=== PATIENT | male | born 1940 | race Caucasian/White ===

== ENCOUNTER → 2018-11-17 | Outpatient (CLI) | payer MEDICARE ==
[2018-11-17 11:17] LABS: African American GFR (CKD) >90 (>60 ml/min/1.73 sqM); Blood Urea Nitrogen 13 mg/dL (9-20)
--- NOTE | 2018-11-17 17:10 | CT ---
EXAMINATION TYPE: CT ChestAbdPelvis w con DATE OF EXAM: 11/17/2018 INDICATION: Lung CA COMPARISON: Written report from [facility] CT DLP: 1885 mGycm CONTRAST: Performed with Oral Contrast and with IV Contrast, patient injected with 100 mL of Isovue 300. TECHNIQUE: Axial images at 5 mm thick sections. Reconstructed images in the coronal plane. Delayed images through the kidneys. FINDINGS: CT CHEST: Portion of the thyroid visualized is normal. There is consolidation in the left infrahilar region. Correlate for pneumonia. Underlying mass is not excluded. There may be some dense calcification present. A Small left pleural effusion may be presen t. There is a 0.4 cm nodule superior segment right lower lobe adjacent to the major fissure. Series 4 im age 39. No enlarged mediastinal or hilar adenopathy is evident. The ascending aorta diameter at the level of the main pulmonary artery is 4.1 cm. The main pulmonary artery diameter at the bifurcation is 4.1 cm. Note is made of coronary artery calcification. CT ABDOMEN: Liver: Normal Spleen: Normal Pancreas: Normal Adrenal glands: The adrenal glands are normal. Gallbladder: Normal Kidneys: No masses are evident. No hydronephrosis is present. No cysts are present. Delayed images were obtained through the kidneys which remain unremarkable. Aorta: Vascular calcification is within the aorta. Inferior vena cava: Normal. CT PELVIS: Loops of bowel within the abdomen and pelvis are normal. There are loops of bowel which are incom pletely distended or lack oral contrast limiting their evaluation. Appendix: Normal as visualized. Urinary bladder: Normal. Genitourinary structures: Prostate is prominent. Osseous structures: No suspicious lytic or sclerotic lesions. IMPRESSIONS: 1. Left infrahilar consolidation with air bronchograms. Correlate for pneumonia. Underlying mass shou ld be considered which would correlate with the patient's reported lung cancer. There may be some alfredo cification in this structure. Consider PET CT for additional evaluation bilateral prior PET/CT scans at this location.
== END | disposition home or self-care (01) ==
LOC: RADPROMAIN 10:08
PROVIDERS: ATTEND Internal Medicine Hematology & Oncology
DX: C34.32 Malignant neoplasm of lower lobe, left bronchus or lung (principal)
CPT/HCPCS: 82565; 84520; 71260; 74177; J1642; Q9967

== ENCOUNTER → 2019-04-23 | Outpatient (CLI) | payer MEDICARE ==
--- NOTE | 2019-04-23 12:44 | CT ---
EXAMINATION TYPE: CT chest w con DATE OF EXAM: 04/23/2019 COMPARISON: CT November 17, 2018 HISTORY: Lung cancer CT DLP: 809 mGycm. Automated Exposure Control for Dose Reduction was Utilized. TECHNIQUE: CT scan of the thorax is performed following with IV Contrast, patient injected with 100 ml mL of Isovue 300. FINDINGS: LUNGS: There is persistent dense masslike consolidation left hilar region extending inferiorly to inv olve the posterior aspect of the left lower lobe with areas of hyperdensity near calcific density tow ards the diaphragm redemonstrated. Adjacent small to tiny left pleural fluid collection noted along t heir axial image 35 remains present. There is persistent left-sided volume loss. Stable 4 mm right anterior lower lobe nodule axial image 33. Some atelectatic change in the right gabby g base posteriorly. No new nodules or masses. No pneumothorax bilaterally. MEDIASTINUM: There are no new greater than 1 cm hilar or mediastinal lymph nodes. No cardiomegaly or pericardial effusion is seen. Moderate to severe three-vessel coronary artery calcification redem onstrated which is noted marked of underlying coronary artery disease. OTHER: Subtle subcentimeter nodule centrally left adrenal gland image 62 is stable favored benign. So me cortical thinning and visualized portion of both kidneys. Multilevel bridging anterior and lateral osteophytes in the thoracic spine redemonstrated probable DISH. Stable nonspecific sclerotic focus p osterior T8 vertebral body level on coronal image 96. Stable right internal jugular Mediport catheter terminating in SVC. 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 No new suspicio us mass or adenopathy identified.
== END | disposition home or self-care (01) ==
LOC: RADPROMAIN 09:37
PROVIDERS: ATTEND Internal Medicine Hematology & Oncology
DX: Z03.89 Encounter for observation for other suspected diseases and conditions ruled out (principal); C34.32 Malignant neoplasm of lower lobe, left bronchus or lung
CPT/HCPCS: 82565; 84520; 71260; Q9967

== ENCOUNTER → 2019-07-20 | Outpatient (CLI) | payer MEDICARE ==
--- NOTE | 2019-07-20 14:09 | CT ---
EXAMINATION TYPE: CT chest w con DATE OF EXAM: 07/20/2019 COMPARISON: 04/23/2019 and 11/17/2018 HISTORY: 78-year-old male Follow up to lung CA TECHNIQUE: Contiguous axial scanning of the chest after the administration of 100 mL of Isovue 300. Coronal/sagittal reconstructions performed. CT DLP: 579.2mGycm. Automatic exposure control utilized for a dose reduction. FINDINGS: Right anterior chest wall injection port with catheter tip at the cavoatrial junction. Heart normal size without pericardial effusion. Three-vessel coronary artery calcifications are prese nt Ectatic ascending aorta 3.8 cm and upper descending thoracic aorta at 3.1 cm. Mild atherosclerotic ar ch calcifications and conventional arch vessel branching anatomy. Redemonstrated is volume loss in the left hemithorax when shift of the heart towards the left. Left infrahilar volume loss and consolidation extending throughout the left lower lobe is unchanged. Associated small left pleural effusion is unchanged as is the subpleural lobulated density with inter nal calcifications along the posteromedial left base measuring 5.0 x 1.9 cm. 4 mm right mid lung pulmonary nodule, unchanged from 11/17/2018. Tiny hiatal hernia. Visualized upper abdomen show some scattered subcentimeter hypodensities within t he left renal cortex suggesting cysts and moderate stool burden. BONES: Bridging endplate spondylosis and some ossification along the supraspinous ligament. IMPRESSION: 1. Redemonstrated consolidation and volume loss along the left infrahilar region and left lower lobe with associated small effusion and some calcifications along a more lobulated subpleural opacity in t he lower lobe measuring 5.0 x 1.9 cm. Findings unchanged from 11/17/2018, likely combination of treate d disease and posttreatment change. 2. A 4 mm right mid lung pulmonary nodule also stable from that time. Additional follow-up as clinica lly indicated. 3. CAD and tiny hiatal hernia.
== END | disposition home or self-care (01) ==
LOC: RADPROMAIN 10:21
PROVIDERS: ATTEND Internal Medicine Hematology & Oncology
DX: R91.1 Solitary pulmonary nodule (principal); I25.10 Atherosclerotic heart disease of native coronary artery without angina pectoris; R91.8 Other nonspecific abnormal finding of lung field; C34.32 Malignant neoplasm of lower lobe, left bronchus or lung; Z98.890 Other specified postprocedural states
CPT/HCPCS: 82565; 84520; 71260; J1642; Q9967

== ENCOUNTER → 2019-12-07 | Outpatient (CLI) | payer MEDICARE ==
--- NOTE | 2019-12-07 12:38 | CT ---
EXAMINATION TYPE: CT ChestAbdPelvis w con DATE OF EXAM: 12/07/2019 COMPARISON: 07/20/2019 HISTORY: Lung CA CT DLP: 2311 mGycm CONTRAST: CT scan of the chest, abdomen and pelvis is performed with Oral Contrast and with IV Contrast, patien t injected with 100 mL of Isovue 300. CT Chest: LUNGS: There is stable left lower lobe consolidation with areas of internal calcification and pleural thickening. No evidence for sizable effusion. Overall appearance is unchanged. The remaining lungs a re clear. Left-sided volume loss seen. Stable 4 mm right mid lung zone pulmonary nodule image 38 is u nchanged. MEDIASTINUM: Thoracic aorta is of normal caliber. The heart is mildly enlarged. No evidence for me diastinal mass or adenopathy. HILAR STRUCTURES: No evidence for mass. No hilar adenopathy is appreciated. OTHER: No significant abnormality. CONTRAST CT ABDOMEN AND PELVIS FINDINGS: LIVER/GB: No calcified gallstones. No space occupying hepatic lesion. Biliary tree is of normal ca liber. PANCREAS: No inflammation. No distinct mass. SPLEEN: No splenic enlargement. No lesion seen. ADRENALS: No nodule. No thickening. KIDNEYS/BLADDER: No hydronephrosis. No nephrolithiasis. No disctinct renal mass. BOWEL: Normal appendix. Normal bowel caliber. No inflammation. GENITAL ORGANS: No gross abnormality. LYMPH NODES: No greater than 1cm abdominal or pelvic lymph nodes are appreciated. AORTA: No significant abnormality. OSSEOUS STRUCTURES: No significant abnormality is seen. OTHER: No significant additional abnormality is seen. IMPRESSION: 1. Stable consolidation and volume loss left lower lobe felt to reflect posttreatment change. 2. Stable right midlung zone pulmonary nodule. No new nodules or masses identified.
== END | disposition home or self-care (01) ==
LOC: RADCTMAIN 09:53
PROVIDERS: ATTEND Internal Medicine Hematology & Oncology
DX: R91.1 Solitary pulmonary nodule (principal); C34.32 Malignant neoplasm of lower lobe, left bronchus or lung; E11.9 Type 2 diabetes mellitus without complications; Z79.84 Long term (current) use of oral hypoglycemic drugs
CPT/HCPCS: 82565; 84520; 71260; 74177; J1642; Q9967

== ENCOUNTER → 2020-09-27 | Outpatient (CLI) | payer MEDICARE ==
--- NOTE | 2020-09-28 07:17 | CT ---
EXAMINATION TYPE: CT ChestAbdPelvis w con DATE OF EXAM: 09/27/2020 COMPARISON: Prior CT December 07, 2019 and older CTs HISTORY: Follow up on lung cancer CT DLP: 2068.8 mGycm. Automated Exposure Control for Dose Reduction was Utilized. CONTRAST: CT scan of the thorax, abdomen and pelvis is performed with oral and with IV Contrast, patient inject ed with 100 mL of Isovue 300. FINDINGS: LUNGS: There is persistent dense masslike consolidation left hilar region extending inferiorly to inv olve the posterior aspect of the left lower lobe with areas of hyperdensity near calcific density tow ards the diaphragm redemonstrated. Adjacent small to tiny left pleural fluid collection redemonstrate d for reference axial image 42 remains present. There is persistent left-sided volume loss. Stable 4 mm right anterior lower lobe nodule axial image 36. Some atelectatic change in the right gabby g base posteriorly is redemonstrated. No new or enlarging nodules or masses. No pneumothorax bilatera lly. MEDIASTINUM: There are no new greater than 1 cm hilar or mediastinal lymph nodes. No cardiomegaly is seen. Small to tiny pericardial effusion is redemonstrated. Moderate to severe three-vessel ng ry artery calcification redemonstrated. OTHER: Stable right internal jugular Mediport catheter. LIVER/GB: No significant abnormality is appreciated. PANCREAS: No significant abnormality is seen. SPLEEN: No significant abnormality is seen. ADRENALS: No significant abnormality is seen. KIDNEYS: No significant abnormality is seen. BOWEL: Oral contrast does not reach the level of the terminal ileum. No suspicious small or large bow el dilatation. GENITAL ORGANS: Enlarged prostate consistent with BPH redemonstrated. LYMPH NODES: No greater than 1cm abdominal or pelvic lymph nodes are appreciated. OSSEOUS STRUCTURES: Multilevel spurring in the spine. Multilevel facet arthropathy in the mid to lowe r lumbar spine. Moderate to severe narrowing with moderate spurring of both hip joints. OTHER: [id number] calcified plaque of the aorta extends into branch vessels. IMPRESSION: Stable masslike consolidation volume loss left lung. No new or enlarging masses or adenop athy. No significant change from most recent CT.
== END | disposition home or self-care (01) ==
LOC: RADPROMAIN 10:05
PROVIDERS: ATTEND Internal Medicine Hematology & Oncology
DX: C34.92 Malignant neoplasm of unspecified part of left bronchus or lung (principal)
CPT/HCPCS: 82565; 84520; 71260; 74177; J1642; Q9967

== ENCOUNTER → 2021-04-05 | Outpatient (CLI) | payer MEDICARE ==
--- NOTE | 2021-04-05 11:54 | CT ---
EXAMINATION TYPE: CT ChestAbdPelvis w con DATE OF EXAM: 04/05/2021 COMPARISON: 09/27/2020 HISTORY: Lung Cancer CT DLP: 2103.90 mGycm Automated exposure control for dose reduction was used. CONTRAST: CT scan of the chest, abdomen and pelvis is performed with Oral Contrast and with IV Contrast, patien t injected with 100 ml mL of Isovue 300. FINDINGS: LUNGS: There is persistent dense masslike consolidation left hilar region extending inferiorly to inv olve the posterior aspect of the left lower lobe with areas of hyperdensity near calcific density tow ards the diaphragm redemonstrated. Adjacent small to tiny left pleural fluid collection redemonstrate d remains present. There is persistent left-sided volume loss. Area of consolidation measures 6.2 x 7 .2 x 8.6 cm and is stable from prior exam. Extends to the left hilum. No pneumothorax. Mediport catheter incidentally noted. Interstitial thickening involving the lateral margin right lung bases most typical for chronic interstitial lung disease. 2 mm nodule lateral segme nt right lower lobe stable prior exam. Additional 3 mm nodule axial image 37 also stable. Nodules are likely benign. MEDIASTINUM: There are no greater than 1 cm hilar or mediastinal lymph nodes. No pericardial effusi on is seen. Coronary artery calcification noted. Heart size stable and there is a tiny pericardial e ffusion. Atherosclerotic change aorta which is of normal caliber. LIVER/GB: No significant abnormality is appreciated. PANCREAS: No significant abnormality is seen. SPLEEN: No significant abnormality is seen. ADRENALS: No significant abnormality is seen. KIDNEYS: 5 mm hypodensity involving the posterior margin of the left kidney most typical of a simple cyst.. BOWEL: No significant abnormality is seen. LYMPH NODES: No greater than 1 cm abdominal or pelvic lymph nodes are appreciated. OSSEOUS STRUCTURES: Multilevel hypertrophic and degenerative changes spine. Arthropathy of the hips. OTHER: Prostate gland is enlarged.. Aorta of normal caliber. There is atherosclerotic change of the a adonis and its branch vessels. IMPRESSION: 1. Large area of consolidation with internal calcification left lower lobe is stable from prior exam and again measures approximately 6.2 x 7.2 x 8.6 cm. There are no prior PET scans available to determ ine the activity of the area to determine if this represents mass or chronic atelectasis or a combina tion of both. 2. No new areas of adenopathy, pulmonary nodule or suspicious mass. Stable appearing right sided sub 5 mm pulmonary nodules are likely benign. 3. Interlobular septal thickening right lower lobe stable most compatible with chronic pulmonary fibr osis.
== END | disposition home or self-care (01) ==
LOC: RADPROMAIN 09:20
PROVIDERS: ATTEND Internal Medicine Hematology & Oncology
DX: C34.32 Malignant neoplasm of lower lobe, left bronchus or lung (principal); R91.8 Other nonspecific abnormal finding of lung field
CPT/HCPCS: 82565; 84520; 71260; 74177; J1642; Q9967

== ENCOUNTER → 2021-11-22 | Outpatient (CLI) | payer MEDICARE ==
--- NOTE | 2021-11-22 15:18 | CT ---
EXAMINATION TYPE: CT ChestAbdPelvis w con DATE OF EXAM: 11/22/2021 INDICATION: f/u lung ca COMPARISON: 04/05/2021 CT DLP: 1646 mGycm CONTRAST: Performed with Oral Contrast and with IV Contrast, patient injected with 70cc mL of Isovue 300. TECHNIQUE: Axial images at 5 mm thick sections. Reconstructed images in the coronal plane. Delayed images through the kidneys. FINDINGS: CT CHEST: Portion of the thyroid visualized is normal. There is consolidation in the left lower lobe. Minimal infiltrate may be at the right base. A punctat e nodularity measuring 0.5 cm in the periphery of the right mid lung. Series 4 image 38. Nodules pres ent previously. Consolidation appears larger. No enlarged mediastinal or hilar adenopathy is evident. The ascending aorta diameter at the level of the main pulmonary artery is 4.0 cm. The main pulmonary artery diameter at the bifurcation is 4.0 cm. Some coronary artery calcifications present. Small per icardial effusion is present. CT ABDOMEN: Liver: Normal Spleen: Normal Pancreas: Normal Adrenal glands: The adrenal glands are normal. Gallbladder: Normal Kidneys: No masses are evident. No hydronephrosis is present. No cysts are present. Delayed images were obtained through the kidneys, which remain unremarkable. Aorta: Vascular calcification is within the aorta. Inferior vena cava: Normal. CT PELVIS: Loops of bowel within the abdomen and pelvis are normal. There are loops of bowel which are incom pletely distended or lack oral contrast limiting their evaluation. Fecal debris is within the colon. Appendix: Not visualized. No dilated to a structural inflammatory changes evident Urinary bladder: Normal. Genitourinary structures: Prostate is somewhat prominent. Osseous structures: No suspicious lytic or sclerotic lesions IMPRESSIONS: 1. Small consolidation posterior medial left lung base could be related to the patient's known lung c ancer. No interval growth is evident. 2. Small nodule periphery right lower lung field, stable. 3. Developing small pericardial effusion
== END | disposition home or self-care (01) ==
LOC: RADPROMAIN 09:41
PROVIDERS: ATTEND Internal Medicine Hematology & Oncology
DX: C34.32 Malignant neoplasm of lower lobe, left bronchus or lung (principal); I31.3 Pericardial effusion (noninflammatory)
CPT/HCPCS: 82565; 84520; 71260; 74177; 36415; J1642; Q9967

== ENCOUNTER → 2022-07-20 | Outpatient (CLI) | payer MEDICARE | END | disposition home or self-care (01) | LOC: RADCTMAIN 08:58 | PROVIDERS: ATTEND Internal Medicine Hematology & Oncology | DX: Z53.9 Procedure and treatment not carried out, unspecified reason (principal) ==

== ENCOUNTER → 2023-02-27 | Outpatient (CLI) | payer MEDICARE ==
[2023-02-27 10:50] LABS: African American GFR (CKD) 76 (>60 ml/min/1.73 sqM); Blood Urea Nitrogen 23 mg/dL (9-20); Non-African American GFR(CKD) 65 (>60 ml/min/1.73 sqM)
--- NOTE | 2023-02-27 11:52 | CT ---
EXAMINATION TYPE: CT ChestAbdPelvis w con DATE OF EXAM: 02/27/2023 COMPARISON: Prior CT July 31, 2022 and older studies HISTORY: Follow up to lung ca CT DLP: 2183.70 mGycm. Automated Exposure Control for Dose Reduction was Utilized. CONTRAST: CT scan of the thorax, abdomen and pelvis is performed with oral and with IV Contrast, patient inject ed with 100 mL of Isovue 300. FINDINGS: LUNGS: There is persistent dense masslike consolidation left hilar region extending inferiorly to inv olve the posterior aspect of the left lower lobe with areas of hyperdensity near calcific density tow ards the diaphragm redemonstrated. Adjacent small to tiny left pleural fluid collection remains pres ent. There is persistent left-sided volume loss with mediastinal shift. Stable 4 mm right lateral lower lobe nodule axial image 35. Some atelectatic change in the right lung base posteriorly is redemonstrated. No new or enlarging greater than 5 mm pulmonary nodules or manuel s. No pneumothorax bilaterally. MEDIASTINUM: There are no new greater than 1 cm hilar or mediastinal lymph nodes. No cardiomegaly is seen. Small to tiny pericardial effusion is redemonstrated. Moderate to severe three-vessel ng ry artery calcification redemonstrated. OTHER: Stable right internal jugular Mediport catheter. LIVER/GB: No significant abnormality is appreciated. PANCREAS: No significant abnormality is seen. SPLEEN: No significant abnormality is seen. ADRENALS: No new adrenal masses. KIDNEYS: Cortical thinning of both kidneys is redemonstrated. BOWEL: Oral contrast does not reach the level of the terminal ileum. No suspicious small or large bow el dilatation is however noted. GENITAL ORGANS: Mildly Enlarged prostate consistent with BPH redemonstrated. LYMPH NODES: No greater than 1cm abdominal or pelvic lymph nodes are appreciated. OSSEOUS STRUCTURES: Multilevel spurring in the spine. Multilevel facet arthropathy in the mid to lowe r lumbar spine. Moderate to severe narrowing with moderate spurring of both hip joints. OTHER: [id number] calcified plaque of the aorta extends into branch vessels. IMPRESSION: Stable masslike consolidation and volume loss left lung. No new or enlarging masses or ad enopathy to suggest active neoplastic recurrence. No significant change from most recent CT.
== END | disposition home or self-care (01) ==
LOC: RADPROMAIN 09:11
PROVIDERS: ATTEND Internal Medicine Hematology & Oncology
DX: C34.32 Malignant neoplasm of lower lobe, left bronchus or lung (principal); I10 Essential (primary) hypertension; E11.9 Type 2 diabetes mellitus without complications; E78.5 Hyperlipidemia, unspecified
CPT/HCPCS: 82565; 84520; 71260; 74177; 36415; Q9967

== ENCOUNTER 2023-10-16 13:26 | Day surgery (SDC) | payer MEDICARE ==
[2023-10-16 14:00] VITALS: BP 149/83; PULSE 88; RESP 16; TEMP 97.9
[2023-10-16] MEDS ORDERED: ALTEPLASE 2 MG VIAL (CATHFLO) IV STA (15:14)
[2023-10-16] MEDS: IOPAMIDOL-370 100ML BTL INJ ONE (15:30)
[2023-10-16] MEDS: ALTEPLASE 2 MG VIAL (CATHFLO) IV ONE (15:30)
--- NOTE | 2023-10-16 15:58 | IR ---
EXAMINATION TYPE: IR cva device check w fluoro Intraoperative/procedural fluoroscopic services were p rovided. CLINICAL INDICATION:Male, 82 years old with history of CHECK PORT PATENCY; , [facility] Total fluoroscopy time is 0.2 min. DAP: 0.443 Gycm2 Please see the operative/procedural note for further details.
--- NOTE | 2023-10-17 15:32 | P.OP ---
Date of Procedure: 10/16/23 Description of Procedure: Preoperative diagnosis: Malfunctioning port Postoperative diagnosis: Same Procedure: Portogram with fluoroscopic interpretation Pharmacothrombolysis with tPA Surgeon: Tammi Rhoades D.O. EBL: Less than 5 cc IV fluids: None Urine output: None Drains: None Complications: None immediately apparent Condition: Stable to recovery Operative indication and findings: Patient is a 82-year-old male undergoing chemotherapy and has been recently having issues with his port malfunctioning. He is here today for evaluation. Risk and benefits were discussed including but not limited to bleeding, infection. He seems understood and was willing to proceed. Procedure in detail: The patient was taken to the special suite and placed in supine position. The chest wall port was cleansed and draped in usual sterile fashion. Initially utilizing the fluoroscopy, an image was obtained. There was no significant kinking or redundancy to the catheter. Due to this the decision was made to access. Access was obtained there was difficulty with aspiration. There was inability to easily flush. A portogram was performed showing a fibrin sheath at the distal outflow. Due to this the decision was made to place tPA. 2 mg of alteplase was instilled into the port and allowed to dwell. After appropriate dwell time, the port aspirated and flushed easily. Repeat images performed there is no significant visualization of fibrinous Sheath. The procedure was concluded and the Garcia needle was removed and a dressing was placed. May utilize the catheter for infusion aspirating and flushing normally on imaging with good position.
== END 2023-10-16 15:51 | disposition home or self-care (01) ==
LOC: CATHCVL 13:26
PROVIDERS: ATTEND Surgery
DX: T85.698A Other mechanical complication of other specified internal prosthetic devices, implants and grafts, initial encounter (principal); I10 Essential (primary) hypertension; E78.5 Hyperlipidemia, unspecified; E11.9 Type 2 diabetes mellitus without complications; Z79.84 Long term (current) use of oral hypoglycemic drugs; Z79.899 Other long term (current) drug therapy; Y83.8 Other surgical procedures as the cause of abnormal reaction of the patient, or of later complication, without mention of misadventure at the time of the procedure
CPT/HCPCS: 36598; 36593; J2997; Q9967